=== PATIENT | male | born 1980 | race Hispanic/Latino ===

== ENCOUNTER 2019-01-07 17:09 | Emergency (ER) | payer SELFPAY ==
[~2019-01-07] VITALS: Ht 160 cm; Wt 58.0 kg
[2019-01-07 18:12] LABS: HEMATOCRIT 39.1 % (39.0-50.0); HEMOGLOBIN 13.2 g/dl (14.0-18.0); IMMATURE GRANULOCYTES 0.6 % (0.0-5.0); MEAN CELL VOLUME 92.2 fL CALC (80.0-100.0); MEAN CORPUSCULAR HGB 31.1 pG CALC (26.0-32.0); MEAN CORPUSCULAR HGB CONC 33.8 g/L CALC (32.0-36.0); NEUT# 7.77 thou/uL (1.82-7.42); RED BLOOD COUNT 4.24 mill/uL (4.70-6.10); RED CELL DISTRI WIDTH 14.6 % (11.5-15.5)
[2019-01-07 18:40] LABS: ALBUMIN 4.6 g/dL (3.2-5.0); ALKALINE PHOSPHATASE 126 u/l (38-126); ANION GAP 18 (6-22 (CALC)); BILIRUBIN, TOTAL 0.4 mg/dL (0.0-1.4); BUN 9 mg/dL (9-20); BUN/CREATININE RATIO 13 (12-20 (CALC)); CARBON DIOXIDE 23 mmol/l (22-30); CHLORIDE 108 mmol/l (95-108); CREATININE 0.7 mg/dL (0.7-1.3); ETHYL ALCOHOL 227 mg/dl (0-30); GFR > 60 ML/MIN (>=60 (CALC)); GFR FOR AFR.AMER. > 60 ML/MIN (>=60 (CALC)); SGOT/AST 36 u/l (17-59); SODIUM 145 mmol/l (137-146); TOTAL PROTEIN 7.6 g/dL (6.3-8.2)
[2019-01-07 20:59] VITALS: BP 129/72
== END 2019-01-07 20:30 | disposition home or self-care (01) | DRG 999 ==
LOC: ED 17:09
PROVIDERS: Emergency Medicine
PROC: 0HQ1XZZ Repair Face Skin, External Approach (ICD-10-PCS; principal; 2019-01-07)
DX: S01.81XA Laceration without foreign body of other part of head, initial encounter (principal); S22.42XA Multiple fractures of ribs, left side, initial encounter for closed fracture; F10.129 Alcohol abuse with intoxication, unspecified; Y04.2XXA Assault by strike against or bumped into by another person, initial encounter

== ENCOUNTER 2021-11-16 11:45 | Emergency (ER) | payer SELFPAY ==
[~2021-11-16] VITALS: Ht 160 cm; Wt 60.0 kg
[2021-11-16] VITALS (13 sets, daily range): BP systolic 115–143; BP diastolic 70–94
[2021-11-16 12:26] LABS: HEMATOCRIT 42.6 % (39.0-50.0); HEMOGLOBIN 13.9 g/dl (14.0-18.0); IMMATURE GRANULOCYTES 0.2 % (0.0-5.0); MEAN CELL VOLUME 94.5 fL CALC (80.0-100.0); MEAN CORPUSCULAR HGB 30.8 pG CALC (26.0-32.0); MEAN CORPUSCULAR HGB CONC 32.6 g/dL CAL (32.0-36.0); NEUT# 7.99 thou/uL (1.82-7.42); RED BLOOD COUNT 4.51 mill/uL (4.70-6.10); RED CELL DISTRI WIDTH 13.9 % (11.5-15.5)
[2021-11-16 12:35] LABS: ALBUMIN 4.8 g/dL (3.2-5.0); ALKALINE PHOSPHATASE 135 u/l (38-126); ANION GAP 13 (6-22 (CALC)); BILIRUBIN, TOTAL 0.9 mg/dL (0.0-1.4); BUN 12 mg/dL (9-20); BUN/CREATININE RATIO 21 (12-20 (CALC)); CARBON DIOXIDE 29 mmol/l (22-30); CHLORIDE 98 mmol/l (95-108); CREATININE 0.6 mg/dL (0.7-1.3); GFR > 60 ML/MIN (>=60 (CALC)); GFR FOR AFR.AMER. > 60 ML/MIN (>=60 (CALC)); LIPASE 135 u/l (23-300); POTASSIUM 3.9 mmol/l (3.5-5.1); SGOT/AST 51 u/l (17-59); SODIUM 136 mmol/l (137-146); TOTAL PROTEIN 8.5 g/dL (6.3-8.2)
[2021-11-16 13:19] LABS: URINE BILIRUBIN - DIPSTICK NEGATIVE (NEGATIVE); URINE BLOOD DIPSTICK NEGATIVE (NEGATIVE); URINE COLOR YELLOW; URINE GLUCOSE - DIPSTICK >=1000 mg/dL (NEGATIVE); URINE KETONE NEGATIVE (NEGATIVE); URINE LEUK ESTERASE NEGATIVE (NEGATIVE); URINE PROTEIN - DIPSTICK NEGATIVE (NEG-TRACE); URINE SPECIFIC GRAVITY 1.025
[2021-11-16 13:20] LABS: URINE NITRITE - DIPSTICK NEGATIVE (Negative)
[2021-11-16] MEDS ORDERED: MOTRIN400 MG/TAB PO (15:30)
== END 2021-11-16 16:30 | disposition home or self-care (01) | DRG 204 ==
LOC: ED 11:45 → EDBD 11:45 → ED 13:22
PROVIDERS: Family Medicine
DX: R07.81 Pleurodynia (principal); R73.9 Hyperglycemia, unspecified; F17.200 Nicotine dependence, unspecified, uncomplicated

== ENCOUNTER 2022-10-24 09:28 | Emergency (ER) | payer SELFPAY ==
[~2022-10-24] VITALS: Ht 160 cm; Wt 52.0 kg
[~2022-10-24 09:28] MED LIST: MOTRIN400 MG/TAB PO
[2022-10-24] MEDS ORDERED: CEPHALEXIN500 M1 PO (10:18)
[2022-10-24] MEDS ORDERED: MUPIROCIN2 % EX (10:20)
[2022-10-24 10:27] VITALS: BP 123/69
[2022-10-24 10:32] VITALS: BP 118/74
[2022-10-24 10:45] VITALS: BP 122/87
[2022-10-24 10:58] VITALS: BP 122/87
== END 2022-10-24 11:11 | disposition home or self-care (01) | DRG 125 ==
LOC: ED 09:28 → EDBD 09:28 → ED 10:15
DX: S01.112A Laceration without foreign body of left eyelid and periocular area, initial encounter (principal); X58.XXXA Exposure to other specified factors, initial encounter; F17.210 Nicotine dependence, cigarettes, uncomplicated

== ENCOUNTER 2022-12-14 14:41 | Emergency (ER) | payer SELFPAY ==
[~2022-12-14] VITALS: Ht 160 cm; Wt 55.4 kg
[~2022-12-14 14:41] MED LIST changes: +CEPHALEXIN500 M1 PO; +MUPIROCIN2 % EX
[2022-12-14 15:33] VITALS: BP 120/74
== END 2022-12-14 15:37 | disposition home or self-care (01) | DRG 156 ==
LOC: ED 14:41
PROC: 09C4XZZ Extirpation of Matter from Left External Auditory Canal, External Approach (ICD-10-PCS; principal; 2022-12-14)
DX: T16.2XXA Foreign body in left ear, initial encounter (principal); F17.200 Nicotine dependence, unspecified, uncomplicated; X58.XXXA Exposure to other specified factors, initial encounter

== ENCOUNTER 2022-12-18 17:27 | Observation (INO) | payer SELFPAY ==
[2022-12-18] VITALS (14 sets, daily range): BP systolic 92–140; BP diastolic 60–96
[~2022-12-18] VITALS: Ht 160 cm; Wt 51.2 kg
[2022-12-18 18:55] LABS: BASO% 0.4 % (0-3); EOS% 0.1 % (0-8); HEMATOCRIT 49.7 % (39.0-50.0); HEMOGLOBIN 16.5 g/dl (14.0-18.0); IMMATURE GRANULOCYTES 0.8 % (0.0-5.0); LYMPH% 6.7 % (15-41); MEAN CELL VOLUME 91.2 fL CALC (80.0-100.0); MEAN CORPUSCULAR HGB 30.3 pG CALC (26.0-32.0); MEAN CORPUSCULAR HGB CONC 33.2 g/dL CAL (32.0-36.0); MONO% 8.4 % (2-13); NEUT# 7.91 thou/uL (1.82-7.42); NEUT% 83.6 % (42-76); RED BLOOD COUNT 5.45 mill/uL (4.70-6.10); RED CELL DISTRI WIDTH 13.9 % (11.5-15.5)
[2022-12-18 19:07] LABS: ALKALINE PHOSPHATASE 132 u/l (38-126); CPK 794 u/l (55-170); LIPASE 97 u/l (23-300); SGOT/AST 83 u/l (17-59); SODIUM 132 mmol/l (137-146)
[2022-12-18 19:15] LABS: ANION GAP 30 (6-22 (CALC)); BUN 38 mg/dL (9-20); BUN/CREATININE RATIO 17 (12-20 (CALC)); CARBON DIOXIDE 23 mmol/l (22-30); CHLORIDE 85 mmol/l (95-108); CREATININE 2.3 mg/dL (0.7-1.3); GFR FOR AFR.AMER. 37 ML/MIN (>=60 (CALC)); GFR OTHER RACES 31 ML/MIN (>=60 (CALC)); TOTAL PROTEIN 10.7 g/dL (6.3-8.2)
[2022-12-18 19:16] LABS: ALBUMIN > 6.0 g/dL (3.2-5.0)
[2022-12-18 19:19] LABS: POTASSIUM 5.8 mmol/l (3.5-5.1)
[2022-12-18 22:07] LABS: URINE BILIRUBIN - DIPSTICK NEGATIVE (NEGATIVE); URINE BLOOD DIPSTICK TRACE-INTACT (NEGATIVE); URINE COLOR YELLOW; URINE GLUCOSE - DIPSTICK NEGATIVE (NEGATIVE); URINE KETONE 15 mg/dL (NEGATIVE); URINE LEUK ESTERASE NEGATIVE (NEGATIVE); URINE PH 5.5 (4.5-8.0); URINE PROTEIN - DIPSTICK TRACE mg/dL (NEG-TRACE); URINE SPECIFIC GRAVITY 1.025; URINE UROBILINOGEN - DIPSTICK 0.2 E.U./dL (0.2)
[2022-12-18 22:08] LABS: URINE NITRITE - DIPSTICK NEGATIVE (Negative)
[2022-12-19 03:59] VITALS: BP 110/39
[2022-12-19 05:58] LABS: BASO% 0.5 % (0-3); EOS% 1.5 % (0-8); IMMATURE GRANULOCYTES 0.3 % (0.0-5.0); LYMPH% 23.3 % (15-41); MEAN CELL VOLUME 93.8 fL CALC (80.0-100.0); MEAN CORPUSCULAR HGB 31.5 pG CALC (26.0-32.0); MEAN CORPUSCULAR HGB CONC 33.6 g/dL CAL (32.0-36.0); MONO% 18.1 % (2-13); NEUT# 3.33 thou/uL (1.82-7.42); NEUT% 56.3 % (42-76); RED BLOOD COUNT 4.19 mill/uL (4.70-6.10); RED CELL DISTRI WIDTH 14.3 % (11.5-15.5)
[2022-12-19 06:07] LABS: HEMOGLOBIN 13.2 g/dl (14.0-18.0)
[2022-12-19 06:08] LABS: HEMATOCRIT 39.3 % (39.0-50.0)
[2022-12-19 06:09] LABS: ALKALINE PHOSPHATASE 83 u/l (38-126); BILIRUBIN, TOTAL 0.9 mg/dL (0.2-1.3); BUN 23 mg/dL (9-20); CARBON DIOXIDE 25 mmol/l (22-30); CPK 583 u/l (55-170); MAGNESIUM 2.4 mg/dL (1.6-2.3); SGOT/AST 56 u/l (17-59); SODIUM 134 mmol/l (137-146)
[2022-12-19 06:10] LABS: ALBUMIN 4.2 g/dL (3.2-5.0); ANION GAP 10 (6-22 (CALC)); BUN/CREATININE RATIO 29 (12-20 (CALC)); CHLORIDE 103 mmol/l (95-108); CREATININE 0.8 mg/dL (0.7-1.3); GFR FOR AFR.AMER. > 60 ML/MIN (>=60 (CALC)); GFR OTHER RACES > 60 ML/MIN (>=60 (CALC)); POTASSIUM 4.4 mmol/l (3.5-5.1)
[2022-12-19 06:34] VITALS: BP 98/61
== END 2022-12-19 11:42 | disposition home or self-care (01) | DRG 558 ==
LOC: ED 17:27 → ED-I 20:45 → ED 21:34 → MS2 21:34
PROVIDERS: Nurse Practitioner; ADMIT Internal Medicine; ATTEND Internal Medicine
DX: M62.82 Rhabdomyolysis (principal); N17.9 Acute kidney failure, unspecified; E86.0 Dehydration; E87.5 Hyperkalemia; X30.XXXA Exposure to excessive natural heat, initial encounter; Y93.89 Activity, other specified; Y92.73 Farm field as the place of occurrence of the external cause; Y99.0 Civilian activity done for income or pay
CPT/HCPCS: G0378